=== PATIENT | female | born 2000 | race Caucasian/White ===

== ENCOUNTER 2021-03-06 20:34 | Emergency (ER) | payer OTHER ==
[~2021-03-06] VITALS: Ht 175.3 cm; Wt 73.7 kg
[2021-03-06] MEDS ORDERED: LIDO:MAALOX 1:1 20 ML SINGLE DOSE. ONE (20:45)
--- NOTE | 2021-03-06 20:56 | PHYS DOC ---
Adult General Chief Complaint Chief Complaint: GI PROBLEM HPI HPI Patient is a 20-year-old female with past medical history significant for anxiety, depression and heartburn who presents with a chief complaint of sharp chest pain in her upper chest just behind her sternum that started an hour ago, 3 out of 10 in nature with no radiation that started while she was eating. States she has had this before. States she did not take anything for her heartburn. Denies any recent traumas, travels, illnesses, fevers, other chest pain, shortness of breath, abdominal pain, nausea, vomiting, dysuria, hematuria or blood in the stool. Denies any alcohol or drug use. Denies any known ill contacts. Denies any Covid/flu/cold symptoms. States she is eating and drinking normally. States he is making urine and stool normally for her. States that she is a virgin and has never had intercourse so could not be . Review of Systems Review of Systems Review of systems otherwise unremarkable except noted in HPI Current Medications Current Medications Current Medications Medications (Trade) Dose Ordered Sig/Rajiv Start Time Stop Time Status Last Admin Dose Admin Multi-Ingredient Mouthwash/Gargle (Gi Cocktail) 20 ml 1X ONCE 03/06/21 21:00 03/06/21 21:01 UNV Allergies Allergies Allergies Coded Allergies Type Severity Reaction Last Updated Verified No Known Drug Allergies 03/06/21 No Physical Exam Physical Exam Constitutional: Well developed, well nourished, no acute distress, non-toxic appearance. [] HENT: Normocephalic, atraumatic, bilateral external ears normal, oropharynx nayely st, no oral exudates, nose normal. [] Eyes: conjunctiva normal, no discharge. [] Neck: Normal range of motion, no tenderness, supple, no stridor. [] Cardiovascular:Heart rate regular rhythm, no murmur [] Lungs & Thorax: Bilateral breath sounds clear to auscultation [] Abdomen: Bowel sounds normal, soft, no tenderness, no masses, no pulsatile masses. [] Skin: Warm, dry, no erythema, no rash. [] Extremities: No tenderness, ROM intact, no edema. [] Neurologic: Alert and oriented X 3, no focal deficits noted. [] Psychologic: Affect normal, judgement normal, mood normal. [] EKG EKG [] Radiology/Procedures Radiology/Procedures [] Heart Score C/O Chest Pain: N/A Risk Factors: Risk Factors: DM, Current or recent (<one month) smoker, HTN, HLP, family history of CAD, obesity. Risk Scores: Risk Factors: DM, Current or recent (<one month) smoker, HTN, HLP, family history of CAD, obesity. Course & Med Decision Making Course & Med Decision Making Patient is a 20-year-old female who presents with a sharp burning upper chest pain [] Vital signs initially notable for sinus tachycardia and hypertension which resolved quickly in the ED after reassurance. Given GI cocktail. EKG noted above and normal. Discussed all findings with patient. Given education on anxiety and panic attacks. Given education on GERD. Advised to follow-up as soon as possible with the primary care physician and given contact information. Gave return precautions to the ED. Patient grateful, verbalized understanding and agreed with plan of discharge. Dragon Disclaimer Dragon Disclaimer This electronic medical record was generated, in whole or in part, using a voice recognition dictation system. Departure Departure: Impression: Primary Impression: Chest pain Additional Impressions: GERD (gastroesophageal reflux disease) Anxiety Disposition: 01 HOME / SELF CARE / HOMELESS Condition: GOOD Referrals: PCP,SHERYL (PCP) GABE BULLOCK Patient Instructions: Anxiety and Panic Attacks, Chest Pain (Nonspecific), Diet for Gastroesophageal Reflux Disease, Adult, Gastroesophageal Reflux Disease, Adult Additional Instructions: Thank you for coming into the emergency department and allowing us to take care of you. Please read all the attached information carefully to go back over what we discovered. Please start an [id number] heartburn medicine as we discussed. You are given contact information for local primary care physician who you can call first thing Tuesday morning to set up a follow-up appointment and establish care to discuss need for further evaluation and treatment including treatment for anxiety and depression without the use of medications, heartburn/GERD. Please come back to the ED with new or concerning symptoms as discussed. Problem Qualifiers BRENDAN BOWIE MD Mar 06, 2021 20:56
[2021-03-06] MEDS ORDERED: LIDO:MAALOX 1:1 20 ML SINGLE DOSE. PO ONE (21:00)
--- NOTE | 2021-03-06 21:11 | EKG ---
[address] [address] Test Date: 2021-03-06 Test Time: 20:56:58 Pat Name: EILE[address] ST Department: Room: Gender: F Body Bumper: SHREYA : 2000 Requested By: BRENDAN BOWIE Order Number: [id number] Reading MD: Measurements Intervals [place] Rate: 94 P: 75 AK: 114 QRS: 74 QRSD: 82 T: 47 QT: 348 QTc: 441 Interpretive Statements SINUS ARRHYTHMIA OTHERWISE NORMAL ECG RI6.02 No previous ECG available for comparison
[2021-03-06 21:16] VITALS: BP 131/63
--- NOTE | 2021-03-06 21:47 | RAD ---
EXAMINATION: Chest radiograph. VIEWS: Single view COMPARISON: None INDICATION:20 years, Female, chest wall pain. FINDINGS: Normal cardiomediastinal silhouette. No focal consolidation. No pleural effusion or pneumothorax. No acute osseous process. IMPRESSION: No acute cardiopulmonary process. Electronically signed by: Jung Pearson MD (03/06/2021 9:44 PM) [facility]
== END 2021-03-06 21:20 | disposition home or self-care (01) ==
LOC: ER 20:34
DX: K21.9 Gastro-esophageal reflux disease without esophagitis (principal); R07.89 Other chest pain; F41.9 Anxiety disorder, unspecified; F32.9 Major depressive disorder, single episode, unspecified
CPT/HCPCS: 71045; 93005; 99283

== ENCOUNTER → 2021-08-26 | Outpatient (CLI) | payer OTHER ==
--- NOTE | 2021-08-26 15:55 | RAD ---
AP, lateral, and oblique views of the right hand were performed. History: Second digit pain no known injury Comparison: none. No fracture or dislocation is seen. The joint spaces are normal in appearance. No significant soft tissue swelling is seen. Impression: 1. Negative exam of the right hand. Electronically signed by: Polo Banda MD (08/26/2021 3:53 PM) [facility]
== END ==
LOC: RAD 15:04
PROVIDERS: ATTEND Nurse Practitioner Family
DX: M79.641 Pain in right hand (principal)
CPT/HCPCS: 73130